=== PATIENT | male | born 1975 | race Two or more races ===

== ENCOUNTER 2020-05-08 21:08 | Emergency (ER) | payer MEDICAID ==
[~2020-05-08] VITALS: Ht 167.6 cm; Wt 86.2 kg
[2020-05-08] MEDS ORDERED: SODIUM CHLORIDE 0.9% 1,000 ML IV ONE (23:00)
[2020-05-08] MEDS ORDERED: FAMOTIDINE (10MG/ML) 2ML VL IV ONE (23:00)
[2020-05-08] MEDS ORDERED: ACETAMINOPHEN 325 MG TAB PO ONE (23:00)
[2020-05-08] MEDS ORDERED: KETOROLAC TROMETH 30 MG/ML 1ML VIAL IV ONE (23:00)
[2020-05-08] MEDS ORDERED: METOCLOPRAMIDE HCL 5MG/ml INJ 2ml VIAL IV ONE (23:00)
[2020-05-09 03:21] LABS: Basophils # (auto) 0.1 10 ^3/uL (0-0.2); Basophils % (auto) 1.1 % (0.0-2.0); Eosinophils # (auto) 0.1 10 ^3/uL (0-0.8); Eosinophils % (auto) 1.5 % (0.0-7.0); Hematocrit 50.1 % (41.0-53.0); Hemoglobin 17.4 g/dL (13.5-17.5); Lymphocytes # (auto) 1.2 10 ^3/uL (0.4-5.4); Lymphocytes % (auto) 24.9 % (10.0-50.0); Mean Corpuscular Hemoglobin 31.6 pg (28.0-32.0); Mean Corpuscular Hgb Conc. 34.8 g/dL (32.0-36.0); Mean Corpuscular Volume 90.8 fL (80.0-100.0); Monocytes # (auto) 0.6 10 ^3/uL (0-1.3); Monocytes % (auto) 12.5 % (0.0-12.0); Neutrophils # (auto) 2.8 10 ^3/uL (1.6-8.6); Nucleated Red Blood Cells % 0.3 %; Platelet Count (auto) 163 10^3/uL (140-450); Red Blood Cells 5.52 10^6/uL (4.5-5.90); Urine Bacteria FEW /hpf (None Seen); Urine Blood Negative /uL (Negative); Urine Mucus FEW (None Seen); Urine Specific Gravity 1.024 (1.001-1.035); Urine WBC 4 /hpf (0 - 3); White Blood Cell 4.7 10^3/uL (4.4-10.8)
[2020-05-09 03:33] LABS: Albumin 3.3 g/dL (3.4-5.0); BUN/Creatinine Ratio 16.3; Calcium 7.9 mg/dL (8.5-10.1); Potassium 3.4 mmol/L (3.5-5.1)
[2020-05-09 03:36] LABS: Bilirubin, Total 0.6 mg/dL (0.2-1.0)
[2020-05-09 06:00] VITALS: BP 122/88
== END 2020-05-09 07:22 | disposition home or self-care (01) ==
LOC: ER 21:10
DX: R51.9 Headache, unspecified (principal); R74.01 Elevation of levels of liver transaminase levels; K21.9 Gastro-esophageal reflux disease without esophagitis
CPT/HCPCS: 36415; 80053; 81001; 85025; 96361; 96374; 96375; 99285; J1885; J2765; J3490